=== PATIENT | male | born 1980 | race American Indian/Alaskan Native ===

== ENCOUNTER → 2017-11-17 | Outpatient (CLI) | payer OTHER ==
[~2017-11-17] MED LIST: AMOX500 PO; CYCL10 PO; Cleocin HCl300 MG PO; NAPR500 PO; Naprosyn500 MG PO; PRED20; RXAMOX500 PO; RXTRAM50 PO; SERT50 PO; TRAM50 PO; VARE1 PO; Valium5 MG PO
== END ==
LOC: OLS 13:54
DX: Z30.2 Encounter for sterilization (principal); Z30.8 Encounter for other contraceptive management; Z98.52 Vasectomy status

== ENCOUNTER 2023-06-30 21:03 | Emergency (ER) | payer OTHER ==
[~2023-06-30] VITALS: Ht 180.3 cm; Wt 89.4 kg
[2023-06-30 21:40] LABS: Source, Urine Clean Catch
[2023-06-30 21:43] LABS: BASOPHILS ABSOLUTE AUTO 0.08 K/mm3 (0.00-0.23); BASOPHILS PERCENT AUTO 1 % (0-2); EOSINOPHILS ABSOLUTE AUTO 0.24 K/mm3 (0.00-0.68); EOSINOPHILS PERCENT AUTO 3 % (0-6); IMMATURE GRAN ABSOLUTE AUTO 0.02 K/mm3 (0.00-0.10); IMMATURE GRAN PERCENT AUTO 0 % (0-1); LYMPHOCYTES ABSOLUTE AUTO 2.45 K/mm3 (0.84-5.20); LYMPHOCYTES PERCENT AUTO 28 % (21-46); MONOCYTES ABSOLUTE AUTO 0.52 K/mm3 (0.16-1.47); MONOCYTES PERCENT AUTO 6 % (4-13); Mean Corpuscular HGB 29.8 pg (26.0-34.0); Mean Corpuscular HGB Conc 34.2 g/dL (31.5-36.5); Mean Corpuscular Volume 87 fL (80-100); Mean Platelet Volume 10.2 fL (9.1-12.4); NEUTROPHILS PERCENT AUTO 62 % (41-73); Platelet Count 216 K/mm3 (150-400); RDW Coefficient Variation 12.7 % (11.7-14.2); RDW Standard Deviation 40.7 fL (35.1-46.3); Red Blood Cell Count 4.36 M/mm3 (4.30-5.90); White Blood Cell Count 8.71 K/mm3 (4.00-11.30)
[2023-06-30 21:53] LABS: Bilirubin, Urine Neg (Neg); Blood, Urine Neg (Neg); Glucose Qualitative, Urine Neg (Neg); Ketones, Urine Neg (Neg); Leukocyte Esterase, Urine Neg (Neg); Nitrite, Urine Neg (Neg); Protein, Urine Neg (Neg); Urobilinogen, Urine NORM (Normal)
[2023-06-30 21:56] LABS: Appearance, Urine Clear (Clear); Color, Urine Yellow (P-Yellow)
[2023-06-30 22:02] LABS: Albumin, Blood 3.7 g/dL (3.4-5.0); Albumin/Globulin Ratio 1.1 (0.8-1.8); Bilirubin, Total 0.3 mg/dL (0.1-1.0); Bun/Creatinine Ratio 9.1 (12.0-20.0); Calcium, Blood 9.4 mg/dL (8.5-10.1); Creatinine, Blood 0.99 mg/dL (0.60-1.20); Globulin, Blood 3.3 g/dL (2.2-4.0); Potassium, Blood 3.9 mmol/L (3.5-5.5)
[2023-06-30] MEDS ORDERED: FAMO20 PO (23:01)
[2023-06-30] MEDS ORDERED: ONDA4ODT MM (23:01)
[2023-06-30 23:15] VITALS: BP 113/79
== END 2023-06-30 23:15 | disposition home or self-care (01) ==
LOC: ER 21:03
PROVIDERS: Physician Assistant
DX: R10.11 Right upper quadrant pain (principal); R11.2 Nausea with vomiting, unspecified; F12.90 Cannabis use, unspecified, uncomplicated; F17.290 Nicotine dependence, other tobacco product, uncomplicated
CPT/HCPCS: 76705; 80053; 81003; 83690; 85025; 96374; 96375; 99284-25; A9270; J1885; J2405; J7030

== ENCOUNTER → 2023-12-12 | Outpatient (CLI) | payer OTHER ==
[~2023-12-12] MED LIST changes: +FAMO20 PO; +ONDA4ODT MM
[2023-12-12 18:49] LABS: BASOPHILS ABSOLUTE AUTO 0.09 K/mm3 (0.00-0.23); BASOPHILS PERCENT AUTO 1 % (0-2); EOSINOPHILS ABSOLUTE AUTO 0.41 K/mm3 (0.00-0.68); EOSINOPHILS PERCENT AUTO 5 % (0-6); Hematocrit 41.1 % (37.0-53.0); IMMATURE GRAN ABSOLUTE AUTO 0.04 K/mm3 (0.00-0.10); IMMATURE GRAN PERCENT AUTO 1 % (0-1); LYMPHOCYTES ABSOLUTE AUTO 2.38 K/mm3 (0.84-5.20); LYMPHOCYTES PERCENT AUTO 27 % (21-46); MONOCYTES ABSOLUTE AUTO 0.51 K/mm3 (0.16-1.47); MONOCYTES PERCENT AUTO 6 % (4-13); Mean Corpuscular HGB 29.7 pg (26.0-34.0); Mean Corpuscular HGB Conc 34.1 g/dL (31.5-36.5); Mean Corpuscular Volume 87 fL (80-100); Mean Platelet Volume 10.5 fL (9.1-12.4); NEUTROPHILS ABSOLUTE AUTO 5.44 K/mm3 (1.96-9.15); NEUTROPHILS PERCENT AUTO 61 % (41-73); Platelet Count 210 K/mm3 (150-400); Red Blood Cell Count 4.71 M/mm3 (4.30-5.90); White Blood Cell Count 8.87 K/mm3 (4.00-11.30)
[2023-12-12 19:07] LABS: Albumin, Blood 3.5 g/dL (3.4-5.0); Albumin/Globulin Ratio 1.1 (0.8-1.8); Bilirubin, Total 0.5 mg/dL (0.1-1.0); Bun/Creatinine Ratio 12.5 (12.0-20.0); Calcium, Blood 8.6 mg/dL (8.5-10.1); Creatinine, Blood 0.96 mg/dL (0.60-1.20); Globulin, Blood 3.3 g/dL (2.2-4.0); Potassium, Blood 4.4 mmol/L (3.5-5.5); Thyroid Stimulating Hormone 0.912 uIU/mL (0.360-4.800); Total Protein, Blood 6.8 g/dL (6.4-8.2)
== END | disposition home or self-care (01) ==
LOC: LAB 18:43 → LAB SHORT 18:43
PROVIDERS: Family Medicine
DX: R10.9 Unspecified abdominal pain (principal); R63.4 Abnormal weight loss
CPT/HCPCS: 80053; 83690; 84443; 85025

== ENCOUNTER → 2024-02-22 | Outpatient (CLI) | payer OTHER ==
[2024-02-22 10:53] LABS: BASOPHILS ABSOLUTE AUTO 0.09 K/mm3 (0.00-0.23); BASOPHILS PERCENT AUTO 1 % (0-2); EOSINOPHILS ABSOLUTE AUTO 0.38 K/mm3 (0.00-0.68); EOSINOPHILS PERCENT AUTO 5 % (0-6); Hematocrit 41.6 % (37.0-53.0); Hemoglobin 14.1 g/dL (13.5-17.5); IMMATURE GRAN ABSOLUTE AUTO 0.01 K/mm3 (0.00-0.10); IMMATURE GRAN PERCENT AUTO 0 % (0-1); LYMPHOCYTES ABSOLUTE AUTO 1.77 K/mm3 (0.84-5.20); LYMPHOCYTES PERCENT AUTO 22 % (21-46); MONOCYTES PERCENT AUTO 6 % (4-13); Mean Corpuscular HGB 29.6 pg (26.0-34.0); Mean Corpuscular HGB Conc 33.9 g/dL (31.5-36.5); Mean Corpuscular Volume 87 fL (80-100); Mean Platelet Volume 9.8 fL (9.1-12.4); NEUTROPHILS ABSOLUTE AUTO 5.19 K/mm3 (1.96-9.15); NEUTROPHILS PERCENT AUTO 65 % (41-73); Platelet Count 212 K/mm3 (150-400); RDW Coefficient Variation 12.5 % (11.7-14.2); RDW Standard Deviation 40.1 fL (35.1-46.3); Red Blood Cell Count 4.76 M/mm3 (4.30-5.90); White Blood Cell Count 7.94 K/mm3 (4.00-11.30)
[2024-02-22 11:05] LABS: Albumin, Blood 3.6 g/dL (3.4-5.0); Albumin/Globulin Ratio 0.9 (0.8-1.8); Bilirubin, Total 0.5 mg/dL (0.1-1.0); Bun/Creatinine Ratio 8.3 (12.0-20.0); Calcium, Blood 9.2 mg/dL (8.5-10.1); Creatinine, Blood 0.84 mg/dL (0.60-1.20); Potassium, Blood 4.4 mmol/L (3.5-5.5); Total Protein, Blood 7.6 g/dL (6.4-8.2)
== END | disposition home or self-care (01) ==
LOC: LAB SHORT 10:50 → LAB 10:50
PROVIDERS: Physician Assistant
DX: R10.11 Right upper quadrant pain (principal)
CPT/HCPCS: 80053; 83690; 85025

== ENCOUNTER 2024-04-22 19:18 | Observation (INO) | payer OTHER ==
[~2024-04-22] VITALS: Ht 180.3 cm; Wt 75.0 kg
[2024-04-22 19:40] LABS: BASOPHILS ABSOLUTE AUTO 0.07 K/mm3 (0.00-0.23); BASOPHILS PERCENT AUTO 1 % (0-2); EOSINOPHILS ABSOLUTE AUTO 0.11 K/mm3 (0.00-0.68); EOSINOPHILS PERCENT AUTO 1 % (0-6); Hematocrit 40.5 % (37.0-53.0); Hemoglobin 13.6 g/dL (13.5-17.5); IMMATURE GRAN ABSOLUTE AUTO 0.03 K/mm3 (0.00-0.10); IMMATURE GRAN PERCENT AUTO 0 % (0-1); LYMPHOCYTES ABSOLUTE AUTO 2.45 K/mm3 (0.84-5.20); LYMPHOCYTES PERCENT AUTO 20 % (21-46); MONOCYTES ABSOLUTE AUTO 0.81 K/mm3 (0.16-1.47); MONOCYTES PERCENT AUTO 7 % (4-13); Mean Corpuscular HGB 28.5 pg (26.0-34.0); Mean Corpuscular HGB Conc 33.6 g/dL (31.5-36.5); Mean Corpuscular Volume 85 fL (80-100); Mean Platelet Volume 10.1 fL (9.1-12.4); NEUTROPHILS ABSOLUTE AUTO 8.84 K/mm3 (1.96-9.15); NEUTROPHILS PERCENT AUTO 72 % (41-73); Platelet Count 221 K/mm3 (150-400); RDW Coefficient Variation 12.9 % (11.7-14.2); RDW Standard Deviation 39.8 fL (35.1-46.3); Red Blood Cell Count 4.78 M/mm3 (4.30-5.90); White Blood Cell Count 12.31 K/mm3 (4.00-11.30)
[2024-04-22 20:04] LABS: Albumin, Blood 3.6 g/dL (3.4-5.0); Bun/Creatinine Ratio 12.8 (12.0-20.0); Calcium, Blood 8.9 mg/dL (8.5-10.1); Creatinine, Blood 0.71 mg/dL (0.60-1.20); Globulin, Blood 3.6 g/dL (2.2-4.0); Potassium, Blood 3.8 mmol/L (3.5-5.5); Total Protein, Blood 7.2 g/dL (6.4-8.2)
[2024-04-22] MEDS ORDERED: Ondansetron HCl 2 MG / ML 2ML Vial IV ONE (21:30)
[2024-04-22] MEDS ORDERED: NS 1,000 ML IV SCH (21:30)
[2024-04-22] MEDS ORDERED: Ketorolac Tromethamine 30mg Vial IV ONE (21:30)
[2024-04-22] MEDS ORDERED: Ampicillin Sod/Sulbactam Sod 3 GM in NS 100 ML IV ONE (22:25)
[2024-04-22] MEDS ORDERED: HYDROmorphone HCl/Pf 1MG SYR IV PRN (22:40)
[2024-04-22] MEDS ORDERED: Ondansetron HCl 2 MG / ML 2ML Vial IV PRN (22:40)
[2024-04-22] MEDS ORDERED: Lactated Ringer's 1,000 ML IV SCH (22:40)
[2024-04-22] MEDS ORDERED: FentaNYL Citrate 50 MCG/ML 2 ML Injection IV ONE (22:55)
[2024-04-23] VITALS (16 sets, daily range): BP systolic 114–133; BP diastolic 60–86
[2024-04-23 07:07] LABS: BASOPHILS ABSOLUTE AUTO 0.06 K/mm3 (0.00-0.23); BASOPHILS PERCENT AUTO 1 % (0-2); EOSINOPHILS ABSOLUTE AUTO 0.19 K/mm3 (0.00-0.68); EOSINOPHILS PERCENT AUTO 2 % (0-6); Hematocrit 36.1 % (37.0-53.0); Hemoglobin 11.9 g/dL (13.5-17.5); IMMATURE GRAN ABSOLUTE AUTO 0.04 K/mm3 (0.00-0.10); IMMATURE GRAN PERCENT AUTO 0 % (0-1); LYMPHOCYTES ABSOLUTE AUTO 2.27 K/mm3 (0.84-5.20); LYMPHOCYTES PERCENT AUTO 24 % (21-46); MONOCYTES ABSOLUTE AUTO 0.94 K/mm3 (0.16-1.47); MONOCYTES PERCENT AUTO 10 % (4-13); Mean Corpuscular HGB 28.7 pg (26.0-34.0); Mean Corpuscular Volume 87 fL (80-100); Mean Platelet Volume 10.7 fL (9.1-12.4); NEUTROPHILS ABSOLUTE AUTO 5.84 K/mm3 (1.96-9.15); NEUTROPHILS PERCENT AUTO 63 % (41-73); Platelet Count 169 K/mm3 (150-400); RDW Coefficient Variation 13.2 % (11.7-14.2); RDW Standard Deviation 41.1 fL (35.1-46.3); Red Blood Cell Count 4.15 M/mm3 (4.30-5.90); White Blood Cell Count 9.34 K/mm3 (4.00-11.30)
[2024-04-23 07:21] LABS: Albumin, Blood 2.8 g/dL (3.4-5.0); Albumin/Globulin Ratio 0.9 (0.8-1.8); Bilirubin, Total 1.1 mg/dL (0.1-1.0); Bun/Creatinine Ratio 15.2 (12.0-20.0); Calcium, Blood 8.5 mg/dL (8.5-10.1); Creatinine, Blood 0.72 mg/dL (0.60-1.20); Globulin, Blood 3.2 g/dL (2.2-4.0)
--- NOTE | 2024-04-23 07:21 | NUR ---
SHIFT SUMMARY PT ARRIVED TO FLOOR AT 0015, VIA GURNEY. REPORT FROM YESSY LI. PT TRANSFERRED TO HOSPITAL BED INDEPENDENTLYL; STEADY ON HIS FEET. ARRIVED ON RA AND REMAINS ON RA T/O SHIFT. VSS; SBP 120'S, HR IN 60'S, AFEBRILE, SPO2 97% ON RA. PT DENIES ANY CONCERNS EXCEPT FOR PAIN IN RUQ, DECREASED APPETITE AND WEIGHT LOSS OVER THE "LAST YEAR". PT MEDICATED PER EMAR FOR PAIN WITH ADEQUATE RELIEF, UNINTERRUPTED REST ALSO PROVIDED. PT NPO PER ORDERS. IVF PER EMAR. ABLE TO MAKE NEEDS KNOWN. NO ACUTE EVENTS DURING SHIFT. WILL UPDATE ONCOMING RN. AT BEDSIDE UPON ARRIVAL.
[2024-04-23] MEDS ORDERED: CeFAZolin Sodium 2,000 MG in NS 100 ML IV SCH (10:20)
[2024-04-23] MEDS ORDERED: Lactated Ringer's 1,000 ML IV ONE (15:08)
--- NOTE | 2024-04-23 16:01 | NUR ---
PT TO PACU VIA [facility] FROM [facility] AT 1600. PLEASANT & COOPERATIVE. AFEBRILE/VSS. WARM BLANKETS PLACED. SURGICAL PACK COMPLETE. SURGICAL HAT/PAS SLEEVES/BP CUFF PLACED. RESTING QUIETLY. NO COMPLAINTS.
[2024-04-23] MEDS ORDERED: Midazolam HCl 1MG / ML 2ML Vial ONE (17:04)
[2024-04-23] MEDS ORDERED: FentaNYL Citrate 50 MCG/ML 2 ML Injection ONE (17:05)
[2024-04-23] MEDS ORDERED: Bupivacaine 0.5% HCl 5 MG/ML 30MLVIAL ONE (17:10)
[2024-04-23] MEDS ORDERED: propofoL 20 ML IV ONE (17:14)
--- NOTE | 2024-04-23 17:15 | NUR ---
PT TO OR 2 VIA [facility] AT 1715 IN STABLE CONDITION.
[2024-04-23] MEDS ORDERED: Ondansetron HCl 2 MG / ML 2ML Vial ONE ×2 (17:18→17:20)
[2024-04-23] MEDS ORDERED: Dexamethasone Sod Phos 10 MG/ML 1ML VIAL ONE ×2 (17:18→17:20)
--- NOTE | 2024-04-23 18:19 | NUR ---
SHIFT SUMMARY RECEIVED REPORT FROM STEPHANI LI AT 1700. PT IS A/O X4, IND IN ROOM. PT WAS NPO FOR SURGERY TODAY, IS CURRENTLY IN OR. PT WAS MEDICATED FOR PAIN PRE OP W/ IV PAIN MEDS, TOLERABLE RESULTS. PT WAS ALSO MEDICATED FOR NAUSEA PER EMAR W/ GOOD RESULTS. IV FLUIDS GIVEN AT ORDERED RATE. IN ROOM. VSS PREOP.
[2024-04-23] MEDS ORDERED: Sugammadex Sodium 200 MG/2ML SDV (100 MG/ML) ONE (18:33)
[2024-04-23] MEDS ORDERED: Ketorolac Tromethamine 30mg Vial ONE (18:33)
[2024-04-23] MEDS ORDERED: Lactated Ringer's 1,000 ML IV SCH (19:10)
[2024-04-23] MEDS ORDERED: HYDROcodone 5-APAP 325 TAB PO PRN (19:10)
[2024-04-23] MEDS ORDERED: FentaNYL Citrate 50 MCG/ML 2 ML Injection IV PRN (19:10)
--- NOTE | 2024-04-24 04:52 | NUR ---
SHIFT SUMMARY ANTIONETTE RETURNED FROM SURGERY AROUND 2099. PT DROWSY, BUT FULLY ORIENTED. PT PRODUCED P/O VOID W/O PROBLEM. PAIN WELL MANAGED ON CURRENT MEDICATIONS. SOME NAUSEA ON ARRIVAL, RESOLVED W/ ZOFRAN. LAP SITES ARE CLEAN, STERI STRIPS INTACT. NO ACUTE EVENTS TONIGHT. PT RESTING W/ CALL LIGHT IN REACH.
[2024-04-24 05:53] VITALS: BP 118/79
[2024-04-24 07:26] VITALS: BP 126/71
[2024-04-24] MEDS ORDERED: HYDR1TAB94 PO (09:19)
--- NOTE | 2024-04-24 10:34 | NUR ---
DISCCHARGE SUMMARY POD1 LAP RUPAL, A/OX4, VSS, TOLERAATING PO, VOIDING INDEPENDENTLY, AMBULATING INDEPENDENTLY, 3 LAP SITES WITH STERI STRIPS C/D/I, [employer] SITE DRESSING CHANGED FROM [employer]AUZE TO [employer] DRESSING, PROVIDED HIM WITH ADDITION DRESSING AND CUP TO MEASURE OUTPUT FROM [employer]. DISCUSSED DISCHARGE INSTRUCTIONS WITH HIM AND HIS INCLUDING HOME CARE, MEDICATIONS, AND FOLLOW UP. NO QUESTIONS AT THIS TIME, ESCORTED OUT VIA WC TO PRIVATE AUTO TO GO HOME.
== END 2024-04-24 10:25 | disposition home or self-care (01) ==
LOC: ER 19:18 → SURS 19:19
PROVIDERS: Student in an Organized Health Care Education/Training Program; ADMIT Surgery
PROC: 0FT44ZZ Resection of Gallbladder, Percutaneous Endoscopic Approach (ICD-10-PCS; principal; 2024-04-23 20:00)
DX: K80.12 Calculus of gallbladder with acute and chronic cholecystitis without obstruction (principal); K82.A1 Gangrene of gallbladder in cholecystitis; Z87.891 Personal history of nicotine dependence; Z79.899 Other long term (current) drug therapy
CPT/HCPCS: 36415; 76705; 80053; 83690; 85025; 96374; 96375; 99285-25; A9270; G0378; J0295; J0690; J1100; J1170; J1885; J2250; J2405; J2704; J3010; J7030; J7120